=== PATIENT | female | born 1935 ===

== ENCOUNTER → 2016-06-07 | Outpatient (CLI) | payer OTHER ==
[~2016-06-07] MED LIST: ATV5 PO; FLUT220A INH; LEVO75TA5 PO; LISI-729 PO; METF-383 PO; NTRGSL/4 UT; SIMV40TA2 PO
--- NOTE | 2016-06-07 12:00 | DIAGNOSTIC IMAGING REPORT ---
CT HEAD WITHOUT CONTRAST (CT) CLINICAL HISTORY: Dizziness. Positive Romberg test. COMPARISON STUDY: No previous studies for comparison. TECHNIQUE: Axial CT of the brain is performed from the vertex to the skull base. IV contrast was not administered for this examination. CT DOSE: 537.48 mGy.cm FINDINGS: There is a 13 mm right frontotemporal extra-axial hyperdense mass, likely representing a meningioma. There is basal ganglial mineralization. There is no midline shift. There is no acute hemorrhage. There is no CT evidence of acute cortical infarction. There are minimal white matter hypodensities likely on a small vessel basis. There is no evidence of pathologic ventricular dilatation. There is mucosal thickening within the sphenoid and ethmoid sinuses. The frontal sinuses are hypoplastic. IMPRESSION: 1. 13 mm right frontotemporal extra-axial hyperdense mass, statistically representing a meningioma. 2. No evidence of acute hemorrhage. 3. No CT evidence of acute infarction Electronically signed by: Freddy Tim M.D. 06/07/2016 11:57 AM Dictated Date/Time: 06/07/2016 11:54 AM
== END | disposition home or self-care (01) ==
LOC: C.CTS 11:21
PROVIDERS: ATTEND Family Medicine
DX: R42 Dizziness and giddiness (principal); R29.818 Other symptoms and signs involving the nervous system; R93.0 Abnormal findings on diagnostic imaging of skull and head, not elsewhere classified

== ENCOUNTER → 2016-07-23 | Outpatient (CLI) | payer OTHER ==
--- NOTE | 2016-07-23 16:16 | MAMMOGRAPHY REPORT ---
BILATERAL DIGITAL SCREENING MAMMOGRAM WITH CAD: 07/23/2016 CLINICAL HISTORY: Routine screening. Patient has no complaints. TECHNIQUE: Bilateral CC and MLO views were obtained. Current study was also evaluated with a Compute r Aided Detection (CAD) system. COMPARISON: Comparison is made to exams dated: 03/20/2009 specimen, 03/20/2009 localization, 03/06/2009 m ammogram, 02/28/2009 mammogram - [facility], 10/02/2007, and 10/02/2007. BREAST COMPOSITION: There are scattered areas of fibroglandular density in both breasts. FINDINGS: There is a 4.4 mm nodular asymmetry in the lateral, middle to anterior right breast, best seen on the CC view. Although this could represent normal overlapping fibroglandular tissue, additio nal spot compression tomosynthesis views and possibly ultrasound are recommended. There are scattered benign-appearing calcifications in the breasts. Mild vascular calcification bila terally. Evidence of prior surgery within the right breast. No other suspicious mass, architectural distortion or cluster of microcalcifications is seen. IMPRESSION: ACR BI-RADS CATEGORY 0: INCOMPLETE EVALUATION: NEED ADDITIONAL IMAGING EVALUATION The 4.4 mm nodular asymmetry in the lateral right breast needs additional evaluation. The patient will be called to schedule an appointment. Approximately 10% of breast cancers are not detected with mammography. A negative mammographic report should not delay biopsy if a clinically suggestive mass is present. Jeri Acosta M.D. ay/:07/23/2016 15:21:52 Librarian Special Collections: Payton NARANJO(Sofia)(Kim), [facility] letter sent: Addl Imaging 0 BI-RADS Code: ACR BI-RADS Category 0: Incomplete Evaluation: Need Additional Imaging Evaluation
== END | disposition home or self-care (01) ==
LOC: C.MAMM 14:08
PROVIDERS: ATTEND Family Medicine
DX: E28.39 Other primary ovarian failure (principal); Z12.31 Encounter for screening mammogram for malignant neoplasm of breast; N64.89 Other specified disorders of breast; M85.89 Other specified disorders of bone density and structure, multiple sites

== ENCOUNTER → 2016-08-02 | Outpatient (CLI) | payer OTHER ==
--- NOTE | 2016-08-02 13:25 | MAMMOGRAPHY REPORT ---
UNILATERAL RIGHT DIGITAL DIAGNOSTIC MAMMOGRAM TOMOSYNTHESIS AND TARGETED RIGHT ULTRASOUND: 08/02/2016 CLINICAL HISTORY: Callback from screening mammogram for right breast asymmetry. TECHNIQUE: Breast tomosynthesis in addition to standard 2D mammography was performed. Spot compress ion right CC and MLO 2-D and tomosynthesis images were obtained. COMPARISON: Comparison is made to exams dated: 07/23/2016 mammogram, 03/20/2009 specimen, 03/20/2009 local ization, 03/06/2009 mammogram, 02/28/2009 mammogram - [facility], and 10/02/2007. BREAST COMPOSITION: There are scattered areas of fibroglandular density in the right breast. FINDINGS: The previously seen nodular asymmetry within the right lateral breast on the cc view parti ally effaces on the spot compression view. The spot compression MLO view demonstrates an ovoid 5 mm asymmetry in the right superior breast middle depth which likely corresponds with the asymmetry on e cc view which was not clearly evident on the prior 2009 and 2007 exams. Targeted ultrasound was performed of the right lateral breast in the region of the mammographic asymm etry. In the right breast at 9:00, 3 cm from the nipple, there is a hypoechoic solid versus cystic 4 x 2 x 5 mm mass. The margins are not clearly circumscribed. No internal vascularity is evident. T his likely corresponds with the mammographic focal asymmetry and is indeterminate given that it was n ot clearly seen on prior exams. The finding is indeterminant on imaging and ultrasound-guided core n eedle biopsy is recommended for further evaluation. My results and recommendations were discussed wi th the patient and her daughter, and after discussion, the patient does not want a biopsy and would p refer follow-up. Therefore, recommend follow-up mammograms and ultrasound of the right breast in 6 [facility] to confirm stability. IMPRESSION: ACR-BI-RADS CATEGORY 3: PROBABLY BENIGN, TARGETED ULTRASOUND ACR-BI-RADS CATEGORY 3: PRO BABLY BENIGN Partial effacement of the mammographic asymmetry in the right upper outer quadrant. A corresponding hypoechoic solid versus cystic 5 mm mass is seen within the right breast at 9:00 on ultrasound. The finding is indeterminant and ultrasound guided core needle biopsy is recommended for further evaluati on. After discussion with the patient and her mother, the patient would prefer follow-up at this [facility]. Therefore, recommend follow-up diagnostic tomosynthesis mammograms and ultrasound of the right br east in 6 months to confirm stability. The patient and her daughter have been verbally notified of the results. Approximately 10% of breast cancers are not detected with mammography. A negative mammographic report should not delay biopsy if a clinically suggestive mass is present. Sally Dasilva M.D. ah/:08/02/2016 10:43:58 Riding Coach: Payton Vasquez, [facility] letter sent: Follow Up Recommended 3 BI-RADS Code: ACR-BI-RADS Category 3: Probably Benign Ultrasound BI-RADS: ACR-BI-RADS Category 3: Pr obably Benign
== END | disposition home or self-care (01) ==
LOC: C.MAMM 09:29
PROVIDERS: ATTEND Family Medicine
DX: R92.2 Inconclusive mammogram (principal); N64.89 Other specified disorders of breast